=== PATIENT | female | born 1975 | race Caucasian/White ===

== ENCOUNTER 2023-03-03 16:43 | Observation (INO) | payer MEDICARE, MEDICAID ==
[~2023-03-03] VITALS: Ht 142.2 cm; Wt 40.0 kg
[~2023-03-03 16:43] MED LIST: DEPO-MEDROL80 MG/ML IM; FLUOXETINE10 M2 PO; FLUZONE SPLT1 M1 IM; KEFLEX500 MG PO; MEDDOSEPAK PO; MULTIVITAMI1 PO; PNEUMOVAX 23 IM; ROCEPHIN 1 GM1 GM IM
[2023-03-03 17:00] VITALS: BP 118/83
[2023-03-03 17:17] VITALS: BP 82/56
[2023-03-03 17:30] VITALS: BP 120/89
[2023-03-03 17:30] LABS: BASO% 0.2 % (0-3); EOS% 0.3 % (0-8); HEMATOCRIT 42.9 % (37.0-47.0); HEMOGLOBIN 13.9 g/dl (12.0-16.0); IMMATURE GRANULOCYTES 0.2 % (0.0-5.0); LYMPH% 11.2 % (15-41); MEAN CELL VOLUME 108.9 fL CALC (80.0-100.0); MEAN CORPUSCULAR HGB 35.3 pG CALC (26.0-32.0); MEAN CORPUSCULAR HGB CONC 32.4 g/dL CAL (32.0-36.0); MONO% 2.5 % (2-13); NEUT# 9.13 thou/uL (2.00-7.15); NEUT% 85.6 % (42-76); RED BLOOD COUNT 3.94 mill/uL (4.20-5.60)
[2023-03-03 17:37] LABS: ALBUMIN 3.7 g/dL (3.2-5.0); ALKALINE PHOSPHATASE 68 u/l (38-126); ANION GAP 11 (6-22 (CALC)); BILIRUBIN, TOTAL 0.4 mg/dL (0.02-1.3); BUN 20 mg/dL (7-17); BUN/CREATININE RATIO 28 (12-20 (CALC)); CARBON DIOXIDE 26 mmol/l (22-30); CHLORIDE 104 mmol/l (95-108); CREATININE 0.7 mg/dL (0.5-1.0); GFR FOR AFR.AMER. > 60 ML/MIN (>=60 (CALC)); GFR OTHER RACES > 60 ML/MIN (>=60 (CALC)); POTASSIUM 3.9 mmol/l (3.5-5.1); SGOT/AST 27 u/l (14-36); SODIUM 136 mmol/l (137-146); TOTAL PROTEIN 6.1 g/dL (6.3-8.2)
[2023-03-03 18:01] VITALS: BP 122/61
[2023-03-03 22:15] VITALS: BP 131/86
[2023-03-04 05:28] LABS: HEMATOCRIT 39.7 % (37.0-47.0); HEMOGLOBIN 13.2 g/dl (12.0-16.0); MEAN CORPUSCULAR HGB 35.6 pG CALC (26.0-32.0); MEAN CORPUSCULAR HGB CONC 33.2 g/dL CAL (32.0-36.0); RED BLOOD COUNT 3.71 mill/uL (4.20-5.60); RED CELL DISTRI WIDTH 12.9 % (11.5-15.5)
[2023-03-04 05:44] LABS: ALBUMIN 3.4 g/dL (3.2-5.0); ALKALINE PHOSPHATASE 82 u/l (38-126); ANION GAP 10 (6-22 (CALC)); BILIRUBIN, TOTAL 0.4 mg/dL (0.02-1.3); BUN 12 mg/dL (7-17); BUN/CREATININE RATIO 19 (12-20 (CALC)); CARBON DIOXIDE 26 mmol/l (22-30); CHLORIDE 106 mmol/l (95-108); CREATININE 0.7 mg/dL (0.5-1.0); GFR FOR AFR.AMER. > 60 ML/MIN (>=60 (CALC)); GFR OTHER RACES > 60 ML/MIN (>=60 (CALC)); MAGNESIUM 2.1 mg/dL (1.6-2.3); POTASSIUM 3.8 mmol/l (3.5-5.1); SGOT/AST 46 u/l (14-36); SODIUM 138 mmol/l (137-146); TOTAL PROTEIN 5.6 g/dL (6.3-8.2)
[2023-03-04 14:26] VITALS: BP 107/81
[2023-03-04 15:56] VITALS: BP 103/68
[2023-03-04 18:50] VITALS: BP 95/64
[2023-03-05] VITALS (10 sets, daily range): BP systolic 102–130; BP diastolic 66–82
[2023-03-05 07:37] LABS: BASO% 0.4 % (0-3); EOS% 1.1 % (0-8); HEMATOCRIT 41.6 % (37.0-47.0); HEMOGLOBIN 13.5 g/dl (12.0-16.0); IMMATURE GRANULOCYTES 0.1 % (0.0-5.0); LYMPH% 24.2 % (15-41); MEAN CELL VOLUME 108.6 fL CALC (80.0-100.0); MEAN CORPUSCULAR HGB 35.2 pG CALC (26.0-32.0); MEAN CORPUSCULAR HGB CONC 32.5 g/dL CAL (32.0-36.0); MONO% 5.7 % (2-13); NEUT# 5.81 thou/uL (2.00-7.15); NEUT% 68.5 % (42-76); RED BLOOD COUNT 3.83 mill/uL (4.20-5.60); RED CELL DISTRI WIDTH 13.2 % (11.5-15.5)
[2023-03-05 07:50] LABS: ALBUMIN 3.4 g/dL (3.2-5.0); ALKALINE PHOSPHATASE 81 u/l (38-126); ANION GAP 8 (6-22 (CALC)); BUN 17 mg/dL (7-17); BUN/CREATININE RATIO 21 (12-20 (CALC)); CARBON DIOXIDE 28 mmol/l (22-30); CHLORIDE 107 mmol/l (95-108); CREATININE 0.8 mg/dL (0.5-1.0); GFR FOR AFR.AMER. > 60 ML/MIN (>=60 (CALC)); GFR OTHER RACES > 60 ML/MIN (>=60 (CALC)); MAGNESIUM 2.2 mg/dL (1.6-2.3); POTASSIUM 4.3 mmol/l (3.5-5.1); SGOT/AST 33 u/l (14-36); SODIUM 138 mmol/l (137-146); TOTAL PROTEIN 5.7 g/dL (6.3-8.2)
[2023-03-05 07:59] LABS: BILIRUBIN, TOTAL 0.9 mg/dL (0.02-1.3)
[2023-03-06 04:20] VITALS: BP 148/77
[2023-03-06 05:43] LABS: ALBUMIN 3.4 g/dL (3.2-5.0); ALKALINE PHOSPHATASE 88 u/l (38-126); ANION GAP 8 (6-22 (CALC)); BILIRUBIN, TOTAL 0.7 mg/dL (0.02-1.3); BUN 10 mg/dL (7-17); BUN/CREATININE RATIO 15 (12-20 (CALC)); CARBON DIOXIDE 26 mmol/l (22-30); CHLORIDE 108 mmol/l (95-108); CREATININE 0.7 mg/dL (0.5-1.0); GFR FOR AFR.AMER. > 60 ML/MIN (>=60 (CALC)); GFR OTHER RACES > 60 ML/MIN (>=60 (CALC)); MAGNESIUM 2.1 mg/dL (1.6-2.3); SGOT/AST 44 u/l (14-36); SODIUM 138 mmol/l (137-146); TOTAL PROTEIN 5.6 g/dL (6.3-8.2)
[2023-03-06 05:52] LABS: HEMATOCRIT 41.4 % (37.0-47.0); HEMOGLOBIN 13.5 g/dl (12.0-16.0); MEAN CELL VOLUME 108.7 fL CALC (80.0-100.0); MEAN CORPUSCULAR HGB 35.4 pG CALC (26.0-32.0); MEAN CORPUSCULAR HGB CONC 32.6 g/dL CAL (32.0-36.0); RED BLOOD COUNT 3.81 mill/uL (4.20-5.60)
[2023-03-06 07:06] VITALS: BP 137/91
[2023-03-06 16:37] VITALS: BP 110/72
[2023-03-06 19:53] VITALS: BP 102/71
[2023-03-06 19:55] VITALS: BP 102/69
[2023-03-06 20:04] VITALS: BP 111/68
[2023-03-07 01:09] LABS: URINE BILIRUBIN - DIPSTICK NEGATIVE (NEGATIVE); URINE BLOOD DIPSTICK NEGATIVE (NEGATIVE); URINE COLOR YELLOW; URINE GLUCOSE - DIPSTICK NEGATIVE (NEGATIVE); URINE KETONE NEGATIVE (NEGATIVE); URINE LEUK ESTERASE NEGATIVE (NEGATIVE); URINE PH 6.5 (4.5-8.0); URINE PROTEIN - DIPSTICK NEGATIVE (NEG-TRACE); URINE SPECIFIC GRAVITY 1.015; URINE UROBILINOGEN - DIPSTICK 0.2 E.U./dL (0.2)
[2023-03-07 01:13] LABS: URINE NITRITE - DIPSTICK NEGATIVE (Negative)
[2023-03-07 05:17] LABS: HEMATOCRIT 41.2 % (37.0-47.0); HEMOGLOBIN 13.5 g/dl (12.0-16.0); MEAN CORPUSCULAR HGB 35.7 pG CALC (26.0-32.0); MEAN CORPUSCULAR HGB CONC 32.8 g/dL CAL (32.0-36.0); RED BLOOD COUNT 3.78 mill/uL (4.20-5.60)
[2023-03-07 05:32] LABS: ALKALINE PHOSPHATASE 84 u/l (38-126); ANION GAP 8 (6-22 (CALC)); BUN 17 mg/dL (7-17); BUN/CREATININE RATIO 25 (12-20 (CALC)); CARBON DIOXIDE 25 mmol/l (22-30); CHLORIDE 110 mmol/l (95-108); CREATININE 0.7 mg/dL (0.5-1.0); GFR FOR AFR.AMER. > 60 ML/MIN (>=60 (CALC)); GFR OTHER RACES > 60 ML/MIN (>=60 (CALC)); MAGNESIUM 2.2 mg/dL (1.6-2.3); SGOT/AST 35 u/l (14-36); SODIUM 139 mmol/l (137-146)
[2023-03-07 05:33] LABS: BILIRUBIN, TOTAL 0.4 mg/dL (0.02-1.3)
[2023-03-07 07:50] VITALS: BP 114/73
[2023-03-07] MEDS ORDERED: VIBRAMYCIN100 M2 PO (11:18)
[2023-03-07] MEDS ORDERED: AMOX/K CLAV875 M1 PO (11:18)
== END 2023-03-07 12:28 ==
LOC: ED 16:43 → ICU 19:57 → MS2 19:57
PROVIDERS: Family Medicine; Nurse Practitioner Family; ADMIT Internal Medicine; ATTEND Internal Medicine
PROC: 0KBN0ZZ Excision of Right Hip Muscle, Open Approach (ICD-10-PCS; principal; 2023-03-05)
DX: L89.214 Pressure ulcer of right hip, stage 4 (principal); L02.415 Cutaneous abscess of right lower limb; G80.9 Cerebral palsy, unspecified; K59.00 Constipation, unspecified; H54.8 Legal blindness, as defined in USA; G93.1 Anoxic brain damage, not elsewhere classified; E44.0 Moderate protein-calorie malnutrition; Z68.1 Body mass index [BMI] 19.9 or less, adult; Z87.01 Personal history of pneumonia (recurrent); Z20.822 Contact with and (suspected) exposure to COVID-19
CPT/HCPCS: J1650; Q9967